=== PATIENT | female | born 1975 | race Two or more races ===

== ENCOUNTER 2021-03-12 16:19 | Emergency (ER) | payer SELFPAY ==
[~2021-03-12] VITALS: Ht 165.1 cm; Wt 80.0 kg
[2021-03-12] MEDS ORDERED: KETOROLAC 60 MG/2 ML VIAL. IM ONE (17:15)
[2021-03-12] MEDS ORDERED: KETOROLAC 15 MG/ML VIAL. ONE (17:23)
--- NOTE | 2021-03-12 17:28 | PHYS DOC ---
Past Medical History Past Surgical History: No Surgical History General Adult EDM: Chief Complaint: MECHANICAL FALL HPI: HPI: Patient is a 45 year old female who presents with right ankle pain. Patient states she lost her footing on the last step and rolled her ankle. She rates her pain 8/10 nonradiating. She was able to walk after the injury, but with pain. Patient denies prior injury, lightheadedness or weakness prior to her fall, loss of consciousness, head trauma. Review of Systems: Review of Systems: ROS negative except as mentioned in HPI. Heart Score: C/O Chest Pain: No Current Medications: Current Medications Medications (Trade) Dose Ordered Sig/Arcelia Start Time Stop Time Status Last Admin Dose Admin Ketorolac Tromethamine (Toradol Im) 60 mg 1X ONCE 03/12/21 17:15 03/12/21 17:16 UNV Physical Exam: PE: Constitutional: Well developed, well nourished, no acute distress, non-toxic appearance. Cardiovascular: Heart rate regular rhythm, no murmur. Lungs & Thorax: Bilateral breath sounds clear to auscultation. Extremities: Right ankle with swelling and ecchymosis surrounding the lateral malleolus, no bony point tenderness, neurovascular intact. Extremities otherwise no tenderness, no cyanosis, no clubbing, ROM intact, no edema. Current Patient Data: Vital Signs: Vital Signs Date Time Temp Pulse Resp B/P (MAP) Pulse Ox O2 Delivery O2 Flow Rate FiO2 03/12/21 16:55 97.8 97 12 125/87 (100) 98 Room Air 97.8 Radiology/Procedures: Radiology/Procedures: PROCEDURE: ANKLE RIGHT 3V XR EXAM OF ANKLE_RIGHT 3VIEWS Clinical indications: Reason: fall with pain / Spl. Instructions: / History: Findings: Lateral soft tissue swelling is seen. No acute fracture or dislocation of the mortise ankle joint is seen. Mortise ankle joint is intact. No lytic process is apparent. IMPRESSION: No acute fracture of the right ankle is seen. There is a fracture the base of the fifth metatarsal bone with proximal displacement of the fracture fragment. Electronically signed by: Adam Fink MD (03/12/2021 5:28 PM) [id number] Course & Med Decision Making: Course & Med Decision Making Pertinent Labs and Imaging studies reviewed. (See chart for details) Patient presents with a mechanical fall with isolated right ankle injury. X-rays ordered to rule out acute fracture or dislocation. Patient provided with IM keto rolac for pain control. Patient has no concern for , as she has not menstruated in over 2 years. X-rays show a displaced fracture of the base of the fifth metatarsal. Dr. Adams was consulted. He requested patient be placed in a splint and nonweightbearing. She is instructed to set up an appointment on Monday or Monday next week for consult. Patient made aware that surgical intervention is a possibility. Patient understands and is agreeable to discharge plan. Dragon Disclaimer: [employer] Disclaimer: This electronic medical record was generated, in whole or in part, using a voice recognition dictation system. Splinting Patient and family at bedside informed of findings. Splint applied by SEGUNDO Golden. The splint is checked by self, with no. Stabilization of the injury. Distal capillary refill less than 2 seconds and distal neurologic function intact. Departure Departure Impression: Primary Impression: Displaced fracture of fifth metatarsal bone Qualified Codes: S92.351A - Displaced fracture of fifth metatarsal bone, right foot, initial encounter for closed fracture Disposition: 01 HOME / SELF CARE / HOMELESS Condition: STABLE Referrals: SARAVANAN ADAMS [facility] Patient Instructions: RICE - Routine Care for Injuries, [id number] Additional Instructions: You are to bear no weight on your affected foot. Be sure to keep your foot above the level of your hips at all times. You should keep it wrapped until you are able to be evaluated by the distribution technician. MERLE YUSUF Mar 12, 2021 17:28
[2021-03-12 17:41] VITALS: BP 130/73
== END 2021-03-12 19:45 | disposition home or self-care (01) ==
LOC: ER 16:19
DX: S92.351A Displaced fracture of fifth metatarsal bone, right foot, initial encounter for closed fracture (principal); X50.9XXA Other and unspecified overexertion or strenuous movements or postures, initial encounter; Y93.89 Activity, other specified; Y92.89 Other specified places as the place of occurrence of the external cause; Y99.8 Other external cause status
CPT/HCPCS: 29515; 73610; 96372; 99284; J1885